=== PATIENT | female | born 1950 | race Caucasian/White ===

== ENCOUNTER 2018-03-14 05:33 | Day surgery (SDC) | payer OTHER ==
[~2018-03-14 05:33] MED LIST: ATENOLOL25 MG; CLONAZEPAM1 M1; FAMOTIDINE40 MG; HYDROCHLOROTH12.5 M1; LIPITOR20 MG; LISINOPRIL20 MG; METOPROLOL ER-1 EAC2; PEPCID40 MG
[2018-03-14] MEDS ORDERED: ULTRACET PO (12:48)
[2018-03-14] MEDS ORDERED: MACROBID 100 M100 MG PO (12:48)
== END 2018-03-14 17:05 | disposition home or self-care (01) ==
LOC: CIR.AMB 05:33
DX: N81.3 Complete uterovaginal prolapse (principal)